=== PATIENT | female | born 1975 | race Caucasian/White ===

== ENCOUNTER 2018-01-14 10:10 | Emergency (ER) | payer OTHER ==
[~2018-01-14] VITALS: Ht 157.5 cm; Wt 65.9 kg
[~2018-01-14 10:10] MED LIST: CELEXA40 MG PO; LEVOTHROID50 MCG PO
[2018-01-14] MEDS ORDERED: VALIUM2 MG PO (12:11)
[2018-01-14] MEDS ORDERED: MOTRIN600 MG PO (12:11)
[2018-01-14 12:28] VITALS: BP 132/76
== END 2018-01-14 12:29 | disposition home or self-care (01) ==
LOC: EME 10:10
DX: S09.90XA Unspecified injury of head, initial encounter (principal); S90.31XA Contusion of right foot, initial encounter; W10.9XXA Fall (on) (from) unspecified stairs and steps, initial encounter; Z86.011 Personal history of benign neoplasm of the brain; Z98.890 Other specified postprocedural states
CPT/HCPCS: 70450; 73630; 99281; 99284